=== PATIENT | male | born 1980 | race Caucasian/White ===

== ENCOUNTER 2018-05-02 02:19 | Observation (INO) ==
[2018-05-02] MEDS ORDERED: Lidocaine 1% 10 MG/ML - 20 ML VIAL SUBCUT ONE (02:29)
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
[2018-05-02] MEDS ORDERED: Sodium Chloride 0.9% 1,000 ML PRIMARY IV ONE (03:13)
[2018-05-02] MEDS ORDERED: Acetaminophen 1000mg Inj 1,000 MG/100 ML VIAL IV PRN ×2 (03:39→04:17)
[2018-05-02 03:46] LABS: BASOPHILS # (AUTO) 0.06 10*3/UL; BASOPHILS % (AUTO) 0.6 % (0-1); EOSINOPHILS # (AUTO) 0.08 10*3/UL; EOSINOPHILS % (AUTO) 0.8 % (0-8); Hematocrit [HCT] 44.2 % (42.0-52.0); Hemoglobin [HGB] 15.7 g/dL (14.0-18.0); LYMPHOCYTES # (AUTO) 1.63 10*3/uL; MEAN CORPUSCULAR HEMOGLOBIN 33.5 PG (27-31); MEAN CORPUSCULAR HGB CONC 35.5 g/dL (33-37); MEAN CORPUSCULAR VOLUME 94.4 FL (80-90); MEAN PLATELET VOLUME 11.7 FL (7.4-12.2); MONOCYTES # (AUTO) 0.58 10*3/UL (0.3-0.8); MONOCYTES % (AUTO) 5.9 % (5-15); NEUTROPHILS # (AUTO) 7.47 10*3/UL; NEUTROPHILS % (AUTO) 75.9 % (50-80); RED BLOOD COUNT 4.68 10^6/uL (4.70-6.10)
[2018-05-02 03:57] LABS: PLATELET MORPHOLOGY COMMENT NORMAL MORPHOLOGY (NORM); RBC MORPHOLOGY COMMENT NORMAL MORPHOLOGY (NORM); WBC MORPHOLOGY COMMENT NORMAL MORPHOLOGY (NORM)
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
[2018-05-02 04:07] LABS: BLOOD UREA NITROGEN 15 mg/dL (7-22); SERUM ALBUMIN 4.7 g/dL (3.5-4.8)
[2018-05-02] MEDS ORDERED: ONDANSETRON 4 MG/2 ML VIAL IVP PRN (04:15)
[2018-05-02] MEDS ORDERED: Sodium Chloride 0.9% 1,000 ML PRIMARY IV SCH (04:15)
[2018-05-02 06:12] LABS: BILIRUBIN,URINE NEGATIVE (NEG); CLARITY,URINE CLEAR (CLEAR); COLOR,URINE YELLOW (Y); GLUCOSE, URINE (UA) NEGATIVE (NEG); OCCULT BLOOD,URINE NEGATIVE (NEG); PH,URINE 6.5 (5.0-8.5); PROTEIN,URINE NEGATIVE (NEG); UROBILINOGEN,URINE 0.2 EU/dL (0.2)
[2018-05-02 06:13] LABS: AMPHETAMINE SCREEN NEGATIVE (NEG); CANNABINOID SCREEN,URINE NEGATIVE (NEG); COCAINE SCREEN NEGATIVE (NEG); METHADONE URINE SCREEN NEGATIVE (NEG); METHAMPHETAMINES SCREEN,URINE NEGATIVE (NEG); OPIATE SCREEN,URINE NEGATIVE (NEG); URINE SAMPLE TYPE CLEAN CATCH URINE; URINE SPECIFIC GRAVITY - MAN 1.005
--- NOTE | 2018-05-02 07:17 | DI ---
XR CXR 2VW PA/LAT 05/02/2018 2:30 AM History: [facility] [place] ^left lateral chest wall pain Comparison: None. Findings: PA and lateral views of the chest demonstrate normal aeration without focal consolidation. Calcified granulomata are noted bilaterally. There is no pneumothorax or pleural effusion. The cardio mediastinal silhouette is normal in size and contour. The osseous structures are normal for age. Impression: No radiographic evidence of acute cardiopulmonary process.
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
[2018-05-02] MEDS ORDERED: NICOTINE 7 MG /DAY PATCH TRANSDERM SCH (10:15)
[2018-05-02] MEDS ORDERED: oxyCODONE IR Tab 5 MG TAB PO PRN (10:17)
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
[2018-05-03] MEDS ORDERED: Patch Removal PATCH TRANSDERM SCH (09:00)
== END 2018-05-02 16:40 | disposition home or self-care (01) ==
LOC: ER 02:19 → MED/SURG 02:19
PROVIDERS: ADMIT Personal Emergency Response Attendant; ATTEND Surgery